=== PATIENT | female | born 1990 | race Caucasian/White ===

== ENCOUNTER 2019-10-30 06:16 | Emergency (ER) | payer OTHER ==
[~2019-10-30] VITALS: Ht 167.6 cm; Wt 83.9 kg
[~2019-10-30 06:16] MED LIST: FLOMAX0.4 MG PO; KEFLEX250 MG PO; NAPROSYN500 MG PO; NORCO 5-325 TA1 EACH PO; ZOFRAN ODT4 MG PO
[2019-10-30] MEDS ORDERED: AMITRIPTYLINE H25 M2 PO (06:25)
[2019-10-30] MEDS ORDERED: BUSPIRONE HCL7.5 MG PO (06:26)
[2019-10-30 06:55] LABS: URINE BILIRUBIN NEGATIVE (Negative); URINE BLOOD 3+ (Negative); URINE CLARITY CLEAR; URINE COLOR YELLOW; URINE GLUCOSE-RANDOM NEGATIVE (Negative); URINE KETONES TRACE (Negative); URINE LEUKOCYTES-REFLEX NEGATIVE (Negative); URINE NITRITE-REFLEX NEGATIVE (Negative); URINE PROTEIN TRACE (Negative); URINE SPECIFIC GRAVITY >= 1.030 (1.005-1.030); URINE UROBILINOGEN 0.2 E.U./dl (0.2-1.0)
[2019-10-30 07:08] LABS: BACTERIA-REFLEX 1-9 Few /HPF (None Seen); MUCUS None Seen strn/LPF (None Seen); SQUAMOUS 4-10 Moderate /LPF (0-3); URINE RBC >20 Many /HPF (0-2); URINE WBC-REFLEX 0-5 Rare /HPF (0-5)
[2019-10-30 07:09] LABS: CALCIUM OXALATE 4-10 Moderate /LPF (None Seen); CASTS None Seen /LPF (None Seen)
[2019-10-30] MEDS ORDERED: CIPROFLOXACIN500 M1 PO (08:02)
[2019-10-30] MEDS ORDERED: FLOMAX0.4 MG PO (08:02)
[2019-10-30] MEDS ORDERED: NORCO 5-325 TA1 EAC1 PO (08:02)
[2019-10-30 08:10] VITALS: BP 111/75
== END 2019-10-30 08:10 | disposition home or self-care (01) ==
LOC: M.ERS 06:16
PROVIDERS: Emergency Medicine
DX: N20.0 Calculus of kidney (principal); Z87.442 Personal history of urinary calculi

== ENCOUNTER → 2021-11-10 | Outpatient (CLI) | payer OTHER ==
[2021-11-10] VITALS (32 sets, daily range): BP systolic 97–140; BP diastolic 61–97
[~2021-11-10] MED LIST changes: +AMITRIPTYLINE H25 M2 PO; +BUSPIRONE HCL7.5 MG PO; +CIPROFLOXACIN500 M1 PO; +NORCO 5-325 TA1 EAC1 PO
--- NOTE | 2021-11-11 09:12 | CARD ---
[address] [address] CARDIAC CATH REPORT Name: JUDITH WESLEY Room: [facility] Carlos#: [id number] Admission: 11/10/21 Attend Phys: Pratik Meeks MD Discharge: Date of : 89 Report #: [id number] THIS REPORT FOR: cc: GLENN - No family physician/PCP FAM - No family physician/PCP Pratik Meeks MD [facility] ~ cc: DATE OF SERVICE: 11/10/2021 PROCEDURE: Tilt table test. INDICATION: Syncope. DESCRIPTION OF PROCEDURE: After informed consent was obtained, the patient was brought to the cardiac holding area. Orthostatic blood pressures were checked and deemed to be stable and satisfactory. The patient did not exhibit any signs or finding of orthostasis. The patient was then placed on the tilt table test and secured using the designated straps. The table was tilted to the 70-degree head up right position. Blood pressure, pulse rate and O2 saturations were monitored every 2 minutes. The initial blood pressure was 129/94 mmHg with a heart rate of 113 beats per minute. The patient's vital signs remained stable throughout the initial 20-minute phase of the tilt table test. She had no changes in symptomatology. At 20 minutes, nitroglycerin 0.4 mg was given sublingually. At this time, her blood pressure was 133/89 mmHg with a pulse rate of 119 beats per minute. The patient's vital signs remained stable with the vasodilation induced by sublingual nitroglycerin. The patient's blood pressure gradually decreased to a low of 107/61 mmHg. At that time, her pulse rate was 127 beats per minute. At the termination of the test, the blood pressure was 104/77 mmHg with a pulse rate of 101 beats per minute. The case was discontinued. The patient exhibited no symptoms of syncope or near syncope. IMPRESSION: Negative tilt table test. There were no findings to suggest neurocardiogenic syncope. <ELECTRONICALLY SIGNED> By: Pratik Meeks MD, FACC 11/11/21 0912 1331 1946Micaron Meeks MD, FACC /nt
== END | disposition home or self-care (01) ==
LOC: M.CL 09:00
PROVIDERS: ATTEND Internal Medicine Cardiovascular Disease
DX: R55 Syncope and collapse (principal); Z79.899 Other long term (current) drug therapy

== ENCOUNTER → 2021-11-19 | Outpatient (CLI) | payer OTHER ==
--- NOTE | 2021-11-19 13:43 | CARD ---
[address] [address] CARDIAC CATH REPORT Name: JUDITH WESLEY Room: [facility] SHELBI Díaz.#: [id number] Admission: 11/19/21 Attend Phys: Pratik Meeks MD Discharge: Date of : 89 Report #: [id number] THIS REPORT FOR: cc: GLENN - No family physician/PCP FAM - No family physician/PCP Pratik Meeks MD [facility] ~ DATE OF SERVICE: 11/19/2021 PROCEDURE: Implantable loop recorder placement. DESCRIPTION OF PROCEDURE: After informed consent was obtained, the patient was brought to the cardiac holding area. The chest was prepped and draped in sterile fashion. The fourth intercostal space, left of sternum was identified. Local anesthesia was achieved with 1% lidocaine. Next, an incision was made in the fourth left intercostal space using the provided blade. A BioMonitor III, model #614296, serial #[id number] implantable loop recorder was placed without difficulty. The skin was closed with Dermabond. The patient tolerated the procedure well without complication. IMPRESSION AND RECOMMENDATIONS: 1. History of syncope, etiology unknown. 2. Successful placement of implantable loop recorder. <ELECTRONICALLY SIGNED> By: Pratik Meeks MD, [facility] 11/19/21 1343 1230 [id number] Larry Meeks MD, FACC /nt
== END | disposition home or self-care (01) ==
LOC: M.CL 12:01
PROVIDERS: ATTEND Internal Medicine Cardiovascular Disease
DX: R55 Syncope and collapse (principal); Z98.890 Other specified postprocedural states; Z79.899 Other long term (current) drug therapy; Z87.442 Personal history of urinary calculi